=== PATIENT | female | born 1940 | race Caucasian/White ===

== ENCOUNTER 2024-06-30 15:47 | Emergency (ER) | payer OTHER ==
[2024-06-30] MEDS ORDERED: HYDROMORPHONE HCL 1 MG/ML INJ ONE (16:44)
[2024-06-30] MEDS ORDERED: ONDANSETRON 4 MG/2 ML VIAL ONE (16:44)
--- NOTE | 2024-06-30 16:59 | RAD REPORT ---
EXAM:Humerus Left HISTORY: fall;Pain COMPARISON: None IMPRESSION: Displaced left proximal humerus fracture involving the surgical neck and greater tuberosi ty. No dislocation. There is nearly 2 cm of medial displacement.
[2024-06-30 17:08] LABS: Absolute Basophils 0.1 K/uL (0-0.5); Absolute Eosinophils 0.2 K/uL (0-0.5); Absolute Lymphocytes (CBC) 1.6 K/uL (0.7-4.9); Absolute Monocytes 0.9 K/uL (0.1-1.3); Absolute Neutrophil 7.2 K/uL (1.8-8.0); Basophils % 0.6 % (0-1.3); Eosinophils % 1.9 % (0-4.4); Hematocrit 41.2 % (36.0-45.0); Hemoglobin 13.6 g/dL (12.0-15.0); Lymphocytes % 15.6 % (15.3-44.8); MCH 30.4 pg (27.0-35.0); MCHC 33.1 g/dL (32.0-36.0); MCV 91.9 fL (80-100); MPV 8.9 fL (7.6-11.3); Monocytes % 9.1 % (3.3-12.3); Neutrophils % 72.8 % (41.7-73.7); Nucleated Red Blood Cells % 0.1 % (0-0); Platelets 197 thou/uL (152-406); RBC Red Blood Cell Count 4.48 M/uL (3.86-4.86); Red Cell Distribution Width 13.9 % (12.1-15.2)
[2024-06-30 17:25] LABS: Anion Gap 9.1 mEq/L (5.0-15.0)
[2024-06-30 17:26] LABS: Potassium 4.1 mEq/L (3.5-5.1)
--- NOTE | 2024-06-30 18:18 | RAD REPORT ---
EXAMINATION: Head C Spine Mpr Wo Con CLINICAL INDICATION: Female, 83 years old. fall TECHNIQUE: Axial CT images from the skull base to the vertex without intravenous contrast. Axial CT i mages through the cervical spine were obtained without intravenous contrast. Sagittal and coronal reformatted images were created from the data set. Coronal and sagittal reformatted images were creat ed from the data set. One or more of the following dose reduction techniques were used: Automated exposure control, adjustment of the mA and/or kV according to patient size, and/or iterative reconstr uction. Unless otherwise specified, incidental findings do not require dedicated imaging follow-up. [id number]. COMPARISON: No prior exam. FINDINGS: Head: INTRACRANIAL: No acute intracranial hemorrhage. No hydrocephalus. No mass effect or midline shift. No significant white matter disease. VASCULATURE: No visualized abnormalities in the arteries or dural venous sinuses. SCALP/SKULL: No calvarial fracture identified. No acute soft tissue abnormality. SINUSES: The visualized paranasal sinuses are mostly clear. No significant mastoid fluid. Cervical spine: ALIGNMENT: The cervical spine has normal alignment without scoliosis or spondylolisthesis. BONE: Vertebral body heights are maintained. No aggressive osseous lesions. DEGENERATIVE: Multilevel cervical spondylosis with evidence of bilateral neural foraminal narrowing. No high grade central spinal stenosis. There is at least moderate central spinal stenosis at the C5-6 level secondary to a posterior disc osteophyte complex. There is also severe neural foraminal na rrowing at this level and at C6-7. SOFT TISSUE: No significant abnormalities in the soft tissue of the neck. The visualized lung apices are clear. IMPRESSION: No acute intracranial abnormality. No acute fracture or traumatic malalignment of the cervical spine.
--- NOTE | 2024-06-30 18:22 | RAD REPORT ---
EXAM: Chest Abd Pelvis Wo Con CLINICAL INDICATION: Female, 83 years old fall TECHNIQUE: CT chest, abdomen and pelvis was performed, without IV contrast, as per department protoco l. Axial, sagittal and coronal reconstructions were obtained. One or more of the following dose reduction techniques were used: Automated exposure control, adjustment of the mA and/or kV according to the patient size, and/or iterative reconstruction. Unless otherwise specified, incidental findings do not require dedicated imaging follow-up. [id number]. COMPARISON: No prior exam. FINDINGS: The lack of intravenous contrast limits the sensitivity of this exam for evaluation of solid visceral organs, vascular structures, and retroperitoneum. ---THORAX--- LOWER NECK AND CHEST WALL: Visualized thyroid gland and soft tissues are normal. LUNGS AND AIRWAYS: Airways are clear. No evidence of airspace or interstitial process.No suspicious a nd/or stable pulmonary nodules. PLEURA: No pleural effusion. No pneumothorax. MEDIASTINUM AND LYMPH NODES: No mediastinal mass or fluid collection. Normal size mediastinal, hilar, and axillary lymph nodes. THORACIC AORTA: No thoracic aortic aneurysm. Atherosclerotic changes are present. PULMONARY ARTERIES: Caliber is within normal limits. HEART: Mild cardiomegaly. Mild coronary artery calcifications.No significant pericardial effusion. Ao rtic valve and mitral annular calcifications. ---ABDOMEN/PELVIS--- UPPER GI: No significant abnormality. LIVER: Nodular liver contour. GALLBLADDER/BILE DUCTS: Cholecystectomy. No significant biliary ductal dilatation.? PANCREAS: No mass, ductal dilation, or jocelyn-pancreatic fluid. SPLEEN: Unremarkable. ADRENALS: No adrenal masses. KIDNEYS AND URETERS: No hydronephrosis.Limited evaluation for renal lesions in the absence of IV cont rast. ABDOMINAL AORTA AND OTHER VESSELS: Mild atherosclerotic changes. PERITONEUM: No abnormal free fluid. No free air. LYMPH NODES: No pathologic lymphadenopathy. ABDOMINAL WALL: Unremarkable SMALL BOWEL/COLON: Small bowel has normal course and caliber. No colonic wall thickening or pericolon ic inflammatory changes. Mild diverticulosis without diverticulitis. URINARY BLADDER: Underdistended but grossly unremarkable. REPRODUCTIVE ORGANS: No pathologic process. ---COMBINED--- MUSCULOSKELETAL: Comminuted left proximal humerus fracture. No other fractures are identified. ADDITIONAL FINDINGS: None. IMPRESSION: Displaced left proximal humerus fracture. No other evidence of significant trauma to the chest, abdom en, or pelvis.
[2024-06-30] MEDS ORDERED: PROMETHAZINE INJ 25 MG/ML AMP ONE (19:34)
--- NOTE | 2024-06-30 21:12 | EDPHYS ---
Physician Documentation [facility] Name: Liz Orellana Age: 83 yrs Sex: Female : 1940 Arrival Date: 06/30/2024 Time: 15:47 Bed 8 Private MD: ED Physician Neville Partida HPI: 06/30 15:58 This 83 yrs old Female presents to ER via Unassigned with complaints of Fall Injury - cp FROM SITTING. 15:58 Details of fall: The patient fell from seated position, stool. Onset: The cp symptoms/episode began/occurred just prior to arrival. Associated injuries: The patient sustained left upper arm. Severity of symptoms: in the emergency department the symptoms have improved, mildly. Historical: - Allergies: 16:05 ORANGES; hb 16:05 Cipro; hb - PMHx: 16:05 Diabetes - NIDDM; Hypothyroidism; Pancreas issues; hb - Immunization history:: Adult Immunizations up to date. - Infectious Disease History:: Denies. - Social history:: Smoking status: Patient denies any tobacco usage or history of. ROS: 16:00 Constitutional: Negative for body aches, chills, fever, poor PO intake, cp 16:00 Eyes: Negative for injury, pain, redness, and discharge, cp 16:00 Neck: Negative for stiffness, 16:00 Cardiovascular: Negative for chest pain, edema, palpitations, 16:00 Respiratory: Negative for cough, shortness of breath, wheezing, 16:00 Abdomen/GI: Negative for abdominal pain, nausea, vomiting, and diarrhea, 16:00 MS/extremity: Positive for injury or acute deformity, decreased range of motion, pain, Negative for paresthesias, 16:00 Neuro: Negative for altered mental status, loss of consciousness, numbness, syncope, near syncope, weakness, 16:00 All other systems are negative, Exam: 16:05 Constitutional: The patient appears in no acute distress, alert, awake, cp non-diaphoretic, well developed, well nourished, 16:05 Head/Face: Normocephalic, atraumatic. cp 16:05 Eyes: Periorbital structures: appear normal, Pupils: equal, round, and reactive to light and accomodation, Extraocular movements: intact throughout, Conjunctiva: normal, no exudate, no injection, Sclera: no appreciated abnormality, Lids and lashes: appear normal, bilaterally, 16:05 ENT: External ear(s): are unremarkable, Nose: is normal, Mouth: Lips: moist, Oral mucosa: moist, Posterior pharynx: Airway: no evidence of obstruction, patent, 16:05 Neck: C-spine: vertebral tenderness, is not appreciated, crepitus, is not appreciated, 16:05 Chest/axilla: Inspection: normal, Palpation: crepitus, is not appreciated, tenderness, is not appreciated, 16:05 Cardiovascular: Rate: normal, Rhythm: regular, JVD: is not appreciated, 16:05 Respiratory: the patient does not display signs of respiratory distress, Respirations: normal, no use of accessory muscles, no retractions, labored breathing, is not present, Breath sounds: are clear throughout, no decreased breath sounds, 16:05 Abdomen/GI: Inspection: obese Bowel sounds: active, all quadrants, Palpation: abdomen is soft and non-tender, in all quadrants, 16:05 Back: vertebral tenderness, is not appreciated, 16:05 Musculoskeletal/extremity: Extremities: noted in the left upper arm: decreased ROM, deformity, pain, ROM: limited passive range of motion due to pain, in the left shoulder, Pulses: noted to be 2+ in the left radial artery, the left hand and left arm Sensation intact. 16:05 Neuro: Orientation: to person, place \T\ time. Mentation: is normal, Vital Signs: 15:52 BP 127 / 54; Pulse 63; Resp 16; Temp 98.1; Pulse Ox 96% on R/A; Weight 105.23 kg; hb Height 5 ft. 7 in. ; Pain 7/10; 18:00 BP 108 / 47; Pulse 56; Resp 15; Pulse Ox 98% on R/A; hb 19:42 BP 125 / 57; Pulse 60; Resp 16; Pulse Ox 91% on R/A; jb4 20:53 BP 120 / 53; Pulse 60; Resp 16; Pulse Ox 95% ; cp4 21:12 BP 116 / 67; Pulse 61; Resp 16; Pulse Ox 97% on R/A; jb4 15:52 Body Mass Index 36.34 (105.23 kg, 170.18 cm) hb 15:52 Pain Scale: Adult hb MDM: 15:52 Medical Screening Exam initiated cp 21:10 Data reviewed: vital signs, nurses notes, lab test result(s), radiologic studies, CT cp scan, plain films, and as a result, I will discharge patient. 21:10 Differential diagnosis: closed head injury, contusion, fracture, multiple trauma. cp Consideration of Admission/Observation Escalation of care including admission/observation considered. I considered the following discharge prescriptions or medication management in the emergency department Medications were administered in the Emergency Department. See MAR. Care significantly affected by the following chronic conditions: Diabetes, Obesity. Counseling: I had a detailed discussion with the patient and/or guardian regarding the historical points, exam findings, and any diagnostic results supporting the discharge/admit diagnosis, lab results, radiology results, the need for outpatient follow up, a orthopedic surgeon, to return to the emergency department if symptoms worsen or persist or if there are any questions or concerns that arise at home. Response to treatment: the patient's symptoms have markedly improved after treatment, and as a result, I will discharge patient. 06/30 16:01 Order name: Basic Metabolic Panel; Complete Time: 18:53 cp 06/30 18:54 Interpretation: Normal except: GLUC 114; GFR 59. 06/30 16:01 Order name: CBC with Diff; Complete Time: 18:53 cp 06/30 18:54 Interpretation: Reviewed. 06/30 16:01 Order name: Type And Screen; Complete Time: 18:53 06/30 18:33 Order name: ABO/RH no charge; Complete Time: 18:53 EDMS 06/30 19:49 Order name: Glucose, Ancillary Testing; Complete Time: 20:10 EDMS 06/30 16:01 Order name: XRAY Humerus LEFT; Complete Time: 18:53 06/30 18:54 Interpretation: Report reviewed. 06/30 16:47 Order name: CT Head C Spine; Complete Time: 18:53 cp 06/30 16:47 Order name: CT Chest Abdomen Pelvis W/O Contrast; Complete Time: 18:53 cp 06/30 18:55 Interpretation: Report reviewed. 06/30 16:01 Order name: Labs collected and sent; Complete Time: 17:04 cp 06/30 16:01 Order name: Sling; Complete Time: 17:04 cp 06/30 17:06 Order name: Misc. Order: COLLECT LAV FOR ABO; Complete Time: 18:35 ty 06/30 19:33 Order name: Accucheck Blood Glucose; Complete Time: 19:41 cp 06/30 20:10 Order name: PO challenge; Complete Time: 20:15 cp Administered Medications: 16:35 Not Given (Physician Discretion): morphineor iv 4 mg IVP once over 4 mins cp 16:35 Not Given (Physician Discretion): morphineor iv 4 mg IVP once over 4 mins cp 17:04 Drug: Ondansetron IVP 4 mg IVP once; over 2 minutes Route: IVP; Site: right forearm; hb 18:00 Follow up: Response: No adverse reaction hb 17:04 Drug: HYDROmorphone IVP 1 mg IVP once Route: IVP; Site: right forearm; hb 18:00 Follow up: Response: No adverse reaction hb 19:41 Drug: Promethazine IM 25 mg IM once Route: IM; Site: left gluteus; jb4 20:30 Follow up: Response: No adverse reaction; Marked relief of symptoms jb4 Disposition Summary: 06/30/24 21:11 Discharge Ordered Notes: Location: Home cp Problem: new cp Symptoms: have improved cp Condition: Stable cp Diagnosis - 2-part displaced fracture of surgical neck of left humerus cp - Fall on same level from slipping, tripping and stumbling with subsequent striking cp against object Followup: cp - With: Denis Duarte MD - When: 5 - 6 days - Reason: Recheck today's complaints Discharge Instructions: - Discharge Summary Sheet cp - Humerus Fracture Treated With Immobilization cp Forms: - Medication Reconciliation Form cp - Antibiotic Education cp - Prescription Opioid Use cp - Patient Portal Instructions cp - Leadership Thank You Letter cp Prescriptions: - Anaprox DS 550 mg Oral Tablet - take 1 tablet ORAL route every 12 hours As needed; 20 tablet; Refills: 0, cp Product Selection Permitted - ondansetron 8 mg Oral Tablet,disintegrating - take 1 tablet ORAL route every 12 hours; 20 tablet; Refills: 0, Product cp Selection Permitted - Tylenol-Codeine #3 300mg-30mg Oral tablet - take 2 tablets ORAL route every 6 hours As needed; 20 tablet; Refills: 0, cp Product Selection Permitted Signatures: Dispatcher [facility] Neville Garcia PA PA cp Camilla Andrew RN RN Mark Fowler RN RN jb4 Franklin Laird ty Corrections: (The following items were deleted from the chart) 16:01 16:01 BASIC METABOLIC PANEL+C.LAB.BRZ ordered. EDMS EDMS 16:01 16:01 CBC+H.LAB.BRZ ordered. EDMS EDMS 16:01 16:01 TYPE AND SCREEN+BB.LAB.BRZ ordered. EDMS EDMS 16:01 16:01 Urinalysis+U.LAB.BRZ ordered. EDMS EDMS 16:05 16:05 Allergies: ciprofloxacin; hb hb 21:13 21:11 Fracture of upper end of humerus cp cp
--- NOTE | 2024-06-30 21:12 | ER ---
Nurse's Notes [facility] Name: Liz Orellana Age: 83 yrs Sex: Female : 1940 Arrival Date: 06/30/2024 Time: 15:47 Bed 8 Private MD: Diagnosis: 2-part displaced fracture of surgical neck of left humerus;Fall on same level from slipping, tripping and stumbling with subsequent striking against object Presentation: 06/30 15:52 Chief complaint: EMS states: Fell backwards out of rolling chair and landed on left hb side, c/o severe left shoulder pain 10/10. Negative LOC. Morphine 5mg and Zofran 4mg IVP to 20g LFA [employer] M[employer]. BGL 117, VS WNL. Coronavirus screen: At this time, the client does not indicate any symptoms associated with coronavirus-19. Ebola Screen: No symptoms or risks identified at this time. Initial Sepsis Screen: Does the patient meet any 2 criteria? No. Patient's initial sepsis screen is negative. Does the patient have a suspected source of infection? No. Patient's initial sepsis screen is negative. Risk Assessment: Do you want to hurt yourself or someone else? Patient reports no desire to harm self or others. Onset of symptoms was June 30, 2024. 15:52 Method Of Arrival: EMS: [facility] hb 15:52 Acuity: B[place] 3 hb Triage Assessment: 16:50 General: Appears in no apparent distress. uncomfortable, Behavior is calm, cooperative. hb Pain: Pain currently is 10 out of 10 on a pain scale. EENT: No signs and/or symptoms were reported regarding the EENT system. Neuro: Level of Consciousness is awake, alert, obeys commands, Oriented to person, place, time, situation. Cardiovascular: Patient's skin is warm and dry. Respiratory: Respiratory effort is even, unlabored, Respiratory pattern is regular, agonal. GI: No signs and/or symptoms were reported involving the gastrointestinal system. : No signs and/or symptoms were reported regarding the genitourinary system. Derm: Skin is pink, warm \T\ dry. Musculoskeletal: Reports severe left shoulder pain. Historical: - Allergies: 16:05 ORANGES; hb 16:05 Cipro; hb - PMHx: 16:05 Diabetes - NIDDM; Hypothyroidism; Pancreas issues; hb - Immunization history:: Adult Immunizations up to date. - Infectious Disease History:: Denies. - Social history:: Smoking status: Patient denies any tobacco usage or history of. Screenin:05 [facility] ED Fall Risk Assessment (Adult) History of falling in the last 3 months, hb including since admission Yes- single mechanical fall (1 pt) Confusion or Disorientation No (0 pts) Intoxicated or Sedated Yes (3 pts) Impaired Gait No (0 pts) Mobility Assist Device Used No (0 pt) Altered Elimination No (0 pt) Score/Fall Risk Level 3 or more points = High Risk Oriented to surroundings, Maintained a safe environment, Educated pt \T\ family on fall prevention, incl call for assistance when getting out of bed, Assessed \T\ reinforced patient's understanding of fall precautions. Abuse screen: Denies threats or abuse. Denies injuries from another. Nutritional screening: No deficits noted. Tuberculosis screening: No symptoms or risk factors identified. Assessment: 17:05 General: See triage assessment . hb 18:35 Reassessment: Patient appears in no apparent distress at this time. Patient and/or hb family updated on plan of care and expected duration. Pain level reassessed. Patient is alert, oriented x 3, equal unlabored respirations, skin warm/dry/pink. 19:42 Reassessment: Patient appears in no apparent distress at this time. Patient and/or jb4 family updated on plan of care and expected duration. Pain level reassessed. Patient is alert, oriented x 3, equal unlabored respirations, skin warm/dry/pink. 20:15 Reassessment: Pt desats to 85% on RA after phenergan administration and is notably more jb4 lethargic. ER provider made aware. 21:12 Reassessment: Patient appears in no apparent distress at this time. Patient and/or jb4 family updated on plan of care and expected duration. Pain level reassessed. Patient is alert, oriented x 3, equal unlabored respirations, skin warm/dry/pink. Vital Signs: 15:52 BP 127 / 54; Pulse 63; Resp 16; Temp 98.1; Pulse Ox 96% on R/A; Weight 105.23 kg; hb Height 5 ft. 7 in. ; Pain 7/10; 18:00 BP 108 / 47; Pulse 56; Resp 15; Pulse Ox 98% on R/A; hb 19:42 BP 125 / 57; Pulse 60; Resp 16; Pulse Ox 91% on R/A; jb4 20:53 BP 120 / 53; Pulse 60; Resp 16; Pulse Ox 95% ; cp4 21:12 BP 116 / 67; Pulse 61; Resp 16; Pulse Ox 97% on R/A; jb4 15:52 Body Mass Index 36.34 (105.23 kg, 170.18 cm) hb 15:52 Pain Scale: Adult hb ED Course: 15:51 Patient arrived in ED. ty 15:52 Neville Garcia PA is PHCP. cp 15:52 Juan J Rocha MD is Attending Physician. cp 16:05 Triage completed. hb 16:05 Arm band placed on. hb 16:34 Camilla Andrew, OLAF is Primary Nurse. hb 16:56 XRAY Humerus LEFT In Process Unspecified. EDMS 16:58 Initial lab(s) drawn, by me, sent to lab. Maintain EMS IV. Dressing intact. Good blood hb return noted. Site clean \T\ dry. Gauge \T\ site: 20G RFA. Flushed with 10 mL NS. 17:04 Type And Screen Sent. hb 17:04 CBC with Diff Sent. hb 17:04 Basic Metabolic Panel Sent. hb 17:05 Patient has correct armband on for positive identification. Bed in low position. Call hb light in reach. Provided Education on: tests, result times, medications, NPO status. 18:08 CT Head C Spine In Process Unspecified. EDMS 18:08 CT Chest Abdomen Pelvis W/O Contrast In Process Unspecified. EDMS 20:11 Neville Partida MD is Attending Physician. cp 21:11 Denis uDarte MD is Referral Physician. cp 21:38 No provider procedures requiring assistance completed. IV discontinued, intact, jb4 bleeding controlled, No redness/swelling at site. Pressure dressing applied. Administered Medications: 16:35 Not Given (Physician Discretion): morphineor iv 4 mg IVP once over 4 mins cp 16:35 Not Given (Physician Discretion): morphineor iv 4 mg IVP once over 4 mins cp 17:04 Drug: Ondansetron IVP 4 mg IVP once; over 2 minutes Route: IVP; Site: right forearm; hb 18:00 Follow up: Response: No adverse reaction hb 17:04 Drug: HYDROmorphone IVP 1 mg IVP once Route: IVP; Site: right forearm; hb 18:00 Follow up: Response: No adverse reaction hb 19:41 Drug: Promethazine IM 25 mg IM once Route: IM; Site: left gluteus; jb4 20:30 Follow up: Response: No adverse reaction; Marked relief of symptoms jb4 Medication: 17:05 VIS not applicable for this client. hb Outcome: 21:11 Discharge ordered by MD. dukes 21:38 Patient left the ED. jb4 21:38 Discharged to home via wheelchair, jb4 21:38 Condition: stable 21:38 Discharge instructions given to patient, Instructed on discharge instructions, follow up and referral plans. no drinking with medication, no driving heavy equipment, medication usage, Demonstrated understanding of instructions, follow-up care, medications, Prescriptions given X 3, Signatures: Dispatcher [employer] EDMS Neville Garcia PA PA cp Baxter, Heather, RN RN Mark Fowler RN RN 4 Ana Roberson 4 Franklin Laird Corrections: (The following items were deleted from the chart) 16:05 16:05 Allergies: ciprofloxacin; hb hb
[2024-06-30 21:45] VITALS: TEMP 98.1
[2024-06-30 21:50] VITALS: BP 116/67; O2SAT 97
== END 2024-06-30 21:38 | disposition home or self-care (01) ==
LOC: ER 15:47
DX: S42.222A 2-part displaced fracture of surgical neck of left humerus, initial encounter for closed fracture (principal); W01.10XA Fall on same level from slipping, tripping and stumbling with subsequent striking against unspecified object, initial encounter
CPT/HCPCS: 85025; 80048; 36415; 86900; 86850; 86901; 82947; 70450; 71250; 72125; 74176; 73060; 96375; 96372; 96374; 99284; J2550; J1171; J2405